=== PATIENT | female | born 1935 | race Two or more races ===

== ENCOUNTER 2020-08-14 13:48 | Inpatient (IN) | payer MEDICARE, OTHER ==
[2020-08-14] VITALS (15 sets, daily range): BP systolic 84–167; BP diastolic 34–62
[~2020-08-14] VITALS: Ht 167.6 cm; Wt 75.7 kg
[2020-08-14] MEDS: MIDAZOLAM DRIP 50 mg/50mL 50 ML IV SCH (13:54)
[2020-08-14] MEDS ORDERED: hydrALAZINE HCL 20 MG/ML VL IV ONE (14:00)
[2020-08-14] MEDS ORDERED: hydrALAZINE HCL 20 MG/ML VL ONE (14:00)
[2020-08-14 14:08] LABS: Basophils # (auto) 0.1 10 ^3/uL (0-0.2); Eosinophils # (auto) 0.3 10 ^3/uL (0-0.8); Lymphocytes # (auto) 5.9 10 ^3/uL (0.4-5.4); Mean Corpuscular Volume 77.3 fL (80.0-100.0); Nucleated Red Blood Cells % 0.4 %
[2020-08-14 14:13] LABS: Basophils % (auto) 0.4 % (0.0-2.0); Eosinophils % (auto) 2.3 % (0.0-7.0); Hematocrit 22.6 % (36.0-46.0); Lymphocytes % (auto) 43.2 % (10.0-50.0); Mean Corpuscular Hemoglobin 21.2 pg (28.0-32.0); Mean Corpuscular Hgb Conc. 27.4 g/dL (32.0-36.0); Monocytes % (auto) 7.6 % (0.0-12.0); Neutrophils # (auto) 6.4 10 ^3/uL (1.6-8.6); Neutrophils % (auto) 46.5 % (37.0-80.0); Platelet Count (auto) 266 10^3/uL (140-450); Red Blood Cells 2.92 10^6/uL (4.0-5.20); White Blood Cell 13.7 10^3/uL (4.4-10.8)
[2020-08-14] MEDS ORDERED: FUROSEMIDE 20 MG/2 ML VIAL IV ONE (14:15)
[2020-08-14] MEDS ORDERED: cefTRIAXone 1GM/50ML D5W 50 ML IV ONE (14:15)
[2020-08-14] MEDS ORDERED: SODIUM BICARBONATE 8.4 % INJ 50ML VIAL IV ONE (14:15)
[2020-08-14] MEDS ORDERED: CLINDAMYCIN 600MG IV 50 ML IV ONE (14:15)
[2020-08-14 14:21] LABS: Albumin 2.3 g/dL (3.4-5.0); Calcium 7.9 mg/dL (8.5-10.1); Potassium 3.5 mmol/L (3.5-5.1)
[2020-08-14 14:24] LABS: BUN/Creatinine Ratio 12.2; Bilirubin, Total 0.1 mg/dL (0.2-1.0); Total Protein 5.1 g/dL (6.4-8.2)
[2020-08-14 14:25] LABS: Hemoglobin 6.2 g/dL (12.2-16.2); Red Cell Distribution Width 22.5 % (11.8-14.3)
[2020-08-14] MEDS ORDERED: NOREPINEPHRINE 8 MG/250ML KIT 250 ML IV ONE (14:38)
[2020-08-14 14:50] LABS: INR 1.41 (0.9-1.15); Partial Thromboplastin Time 37.1 sec (23.0-31.2)
[2020-08-14] MEDS: NOREPINEPHRINE 8 MG/250ML KIT 250 ML IV SCH (14:50)
[2020-08-14] MEDS ORDERED: MORPHINE SULF INJ 2 MG/ML SYRINGE 1ML IV PRN (18:15)
[2020-08-14] MEDS ORDERED: NITROGLYCERIN 0.4 MG SL TAB SL PRN (18:15)
[2020-08-14 19:16] LABS: Urine Bacteria FEW /hpf (None Seen); Urine Blood 2+ /uL (Negative); Urine Hyaline Cast FEW /lpf (0 - 2); Urine Mucus FEW (None Seen); Urine Specific Gravity 1.011 (1.001-1.035); Urine WBC 77 /hpf (0 - 5)
[2020-08-14] MEDS ORDERED: MORPHINE SULFATE 4 MG/ML SYR/VIAL IV PRN (19:30)
[2020-08-14] MEDS ORDERED: SUCRALFATE 1 GM/10 ML ORAL SUSP PO ONE (19:30)
[2020-08-14] MEDS: SODIUM CHLORIDE 0.9% 1,000 ML IV SCH (19:30)
[2020-08-14] MEDS ORDERED: LORazepam 2MG/ML-1ML VIAL IV PRN (19:30)
[2020-08-14] MEDS ORDERED: VANCOMYCIN PER PHARMACY 1,000 MG IV SCH (19:30)
[2020-08-14] MEDS ORDERED: LORazepam 0.5 MG TAB PO PRN (19:30)
[2020-08-14] MEDS ORDERED: ONDANSETRON HCL 4 MG/2 ML VIAL IV PRN (19:30)
[2020-08-14] MEDS ORDERED: METOPROLOL TARTRATE 25 MG TAB PO ONE (19:30)
[2020-08-14] MEDS ORDERED: ALUM & MAG HYDROX-SIMETH LIQ(MAALOX) 30 ML PO ONE (19:30)
[2020-08-14] MEDS ORDERED: CALCIUM GLUC 1,000mg/50ml-NS 50 ML IV ONE (19:45)
[2020-08-14] MEDS ORDERED: PIPERACILLIN-TAZOB 3.375GM 100 ML IV ONE (20:00)
[2020-08-14] MEDS: IPRATROPIUM BROM 0.5 MG/2.5ML INH SOL NEB SCH (20:18)
[2020-08-14] MEDS ORDERED: VANCOMYCIN 1GM/250ML 250 ML IV ONE (21:00)
[2020-08-14] MEDS ORDERED: fentaNYL Drip 2500mCg/250mlNS 250 ML IV ONE (21:37)
[2020-08-14] MEDS: SUCRALFATE 1 GM/10 ML ORAL SUSP PO SCH (22:00)
[2020-08-14] MEDS: PANTOPRAZOLE 40 MG/10 ML VIAL INJ IV SCH (22:00)
[2020-08-14] MEDS: ATORVASTATIN 20 MG TAB PO SCH (22:00)
[2020-08-14 22:36] LABS: INR 1.09 (0.9-1.15)
[2020-08-14 22:59] LABS: Lactic Acid w/Reflex 5.7 mmol/L (0.4-2.0)
[2020-08-15] VITALS (92 sets, daily range): BP systolic 64–202; BP diastolic 27–74
[2020-08-15] MEDS ORDERED: PROPOFOL 200 ML IV ONE (00:40)
[2020-08-15] MEDS: PROPOFOL 100 ML IV SCH ×2 (00:45→14:00)
[2020-08-15] MEDS: fentaNYL Drip 2500mCg/250mlNS 250 ML IV SCH ×2 (00:45→09:11)
[2020-08-15] MEDS: IPRATROPIUM BROM 0.5 MG/2.5ML INH SOL NEB SCH ×6 (02:24→22:22)
[2020-08-15] MEDS: SUCRALFATE 1 GM/10 ML ORAL SUSP PO SCH ×4 (04:04→21:04)
[2020-08-15 04:23] LABS: Basophils # (auto) 0 10 ^3/uL (0-0.2); Basophils % (auto) 0.2 % (0.0-2.0); Eosinophils # (auto) 0 10 ^3/uL (0-0.8); Hematocrit 30.1 % (36.0-46.0); Lymphocytes # (auto) 0.4 10 ^3/uL (0.4-5.4); Mean Corpuscular Hemoglobin 23.2 pg (28.0-32.0); Mean Corpuscular Hgb Conc. 31.3 g/dL (32.0-36.0); Mean Corpuscular Volume 74.2 fL (80.0-100.0); Monocytes # (auto) 0.6 10 ^3/uL (0-1.3); Monocytes % (auto) 3.5 % (0.0-12.0); Neutrophils # (auto) 17.6 10 ^3/uL (1.6-8.6); Neutrophils % (auto) 94.3 % (37.0-80.0); Nucleated Red Blood Cells % 0.1 %; Platelet Count (auto) 232 10^3/uL (140-450); Red Blood Cells 4.05 10^6/uL (4.0-5.20); White Blood Cell 18.7 10^3/uL (4.4-10.8)
[2020-08-15 04:25] LABS: Hemoglobin 9.4 g/dL (12.2-16.2); Red Cell Distribution Width 22.3 % (11.8-14.3)
[2020-08-15 05:04] LABS: Albumin 2.7 g/dL (3.4-5.0); Calcium 7.2 mg/dL (8.5-10.1); Magnesium 2.3 mg/dL (1.6-2.6); Potassium 3.8 mmol/L (3.5-5.1)
[2020-08-15 05:07] LABS: BUN/Creatinine Ratio 17.9
[2020-08-15 05:09] LABS: Bilirubin, Total 0.5 mg/dL (0.2-1.0); Phosphorus 3.9 mg/dL (2.5-4.90); Total Protein 5.9 g/dL (6.4-8.2)
[2020-08-15] MEDS ORDERED: ENOXAPARIN SOD 100 MG/1 ML SYRINGE SC ONE (05:15)
[2020-08-15 05:26] LABS: INR 1.12 (0.9-1.15); Partial Thromboplastin Time 28.6 sec (23.0-31.2)
[2020-08-15 05:28] LABS: % Iron Saturation 7.1 % (15-50)
[2020-08-15] MEDS: PIPERACILLIN-TAZOB 2.25GM 50 ML IV SCH ×4 (05:45→17:45)
[2020-08-15] MEDS: MIDAZOLAM DRIP 50 mg/50mL 50 ML IV SCH ×2 (09:00→14:00)
[2020-08-15] MEDS: PANTOPRAZOLE 40 MG/10 ML VIAL INJ IV SCH ×2 (09:17→21:04)
[2020-08-15] MEDS: DOCUSATE SOD 100 MG CAP PO SCH (09:17)
[2020-08-15] MEDS ORDERED: LISINOPRIL 5 MG TAB PO SCH (10:00)
[2020-08-15] MEDS: SODIUM CHLORIDE 0.9% 1,000 ML IV SCH ×2 (11:00→21:05)
[2020-08-15] MEDS ORDERED: LINEZOLID 600MG/300ML 300 ML IV ONE (11:45)
[2020-08-15] MEDS: NOREPINEPHRINE 8 MG/250ML KIT 250 ML IV SCH (15:00)
[2020-08-15] MEDS: ATORVASTATIN 20 MG TAB PO SCH (21:04)
[2020-08-15] MEDS: LINEZOLID 600MG/300ML 300 ML IV SCH (21:04)
[2020-08-16] VITALS (83 sets, daily range): BP systolic 87–154; BP diastolic 25–65
[2020-08-16] MEDS: PIPERACILLIN-TAZOB 2.25GM 50 ML IV SCH ×4 (00:26→18:20)
[2020-08-16 00:31] LABS: Eosinophils # (auto) 0.2 10 ^3/uL (0-0.8); Hemoglobin 8.5 g/dL (12.2-16.2); Lymphocytes # (auto) 0.6 10 ^3/uL (0.4-5.4); Monocytes # (auto) 0.4 10 ^3/uL (0-1.3); Neutrophils # (auto) 10.8 10 ^3/uL (1.6-8.6)
[2020-08-16 00:32] LABS: Basophils # (auto) 0.1 10 ^3/uL (0-0.2); Eosinophils % (auto) 1.6 % (0.0-7.0); Hematocrit 26.1 % (36.0-46.0); Mean Corpuscular Hemoglobin 23.5 pg (28.0-32.0); Mean Corpuscular Hgb Conc. 32.4 g/dL (32.0-36.0); Mean Corpuscular Volume 72.6 fL (80.0-100.0); Monocytes % (auto) 3.4 % (0.0-12.0); Platelet Count (auto) 190 10^3/uL (140-450); Red Blood Cells 3.59 10^6/uL (4.0-5.20); White Blood Cell 12.1 10^3/uL (4.4-10.8)
[2020-08-16 00:35] LABS: Red Cell Distribution Width 22.4 % (11.8-14.3)
[2020-08-16 00:44] LABS: INR 1.14 (0.9-1.15); Partial Thromboplastin Time 34.2 sec (23.0-31.2)
[2020-08-16] MEDS: fentaNYL Drip 2500mCg/250mlNS 250 ML IV SCH ×2 (00:45→09:00)
[2020-08-16] MEDS: PROPOFOL 100 ML IV SCH ×2 (00:45→11:00)
[2020-08-16 00:52] LABS: Albumin 2.4 g/dL (3.4-5.0); BUN/Creatinine Ratio 18.8; Calcium 6.6 mg/dL (8.5-10.1); Potassium 3.2 mmol/L (3.5-5.1)
[2020-08-16 00:55] LABS: Bilirubin, Total 0.4 mg/dL (0.2-1.0); Total Protein 5.1 g/dL (6.4-8.2)
[2020-08-16] MEDS: IPRATROPIUM BROM 0.5 MG/2.5ML INH SOL NEB SCH ×6 (02:29→22:17)
[2020-08-16 04:31] LABS: Hematocrit 27.8 % (36.0-46.0); Hemoglobin 8.8 g/dL (12.2-16.2); Mean Corpuscular Hemoglobin 22.9 pg (28.0-32.0); Mean Corpuscular Hgb Conc. 31.6 g/dL (32.0-36.0); Mean Corpuscular Volume 72.7 fL (80.0-100.0); Platelet Count (auto) 177 10^3/uL (140-450); Red Blood Cells 3.82 10^6/uL (4.0-5.20); White Blood Cell 16.6 10^3/uL (4.4-10.8)
[2020-08-16 04:42] LABS: Red Cell Distribution Width 22.4 % (11.8-14.3)
[2020-08-16 04:43] LABS: Basophils % (manual) 0 (0.0-2.0); Blast Cells 0; Metamyelocytes % 0; Myelocytes % 0; Promyelocytes % 0; Reactive Lymphocytes 0
[2020-08-16 05:38] LABS: Anion Gap 14 (5-15); BUN/Creatinine Ratio 18.2; Blood Urea Nitrogen 26 mg/dL (7-18); Calcium 7.2 mg/dL (8.5-10.1); Carbon Dioxide 19 mmol/L (21-32); Chloride 107 mmol/L (98-107); GFR African American 45 mL/min; GFR Non-African American 37 mL/min; Glucose 101 mg/dL (74-106); Potassium 3.5 mmol/L (3.5-5.1); Sodium 140 mmol/L (136-145)
[2020-08-16 05:41] LABS: Band Neutrophils % (manual) 21; Eosinophils % (manual) 2 (0-7); Lymphocytes % (manual) 2 (10.0-50.0); Monocytes % (manual) 3 (0-12)
[2020-08-16] MEDS: SUCRALFATE 1 GM/10 ML ORAL SUSP PO SCH ×4 (06:42→22:00)
[2020-08-16] MEDS: DOCUSATE SOD 100 MG CAP PO SCH (10:00)
[2020-08-16] MEDS: PANTOPRAZOLE 40 MG/10 ML VIAL INJ IV SCH ×2 (10:01→22:58)
[2020-08-16] MEDS: LINEZOLID 600MG/300ML 300 ML IV SCH ×2 (10:02→22:59)
[2020-08-16] MEDS: SODIUM CHLORIDE 0.9% 1,000 ML IV SCH (11:27)
[2020-08-16] MEDS: MIDAZOLAM DRIP 50 mg/50mL 50 ML IV SCH (14:00)
[2020-08-16] MEDS: NOREPINEPHRINE 8 MG/250ML KIT 250 ML IV SCH (15:00)
[2020-08-16] MEDS: ATORVASTATIN 20 MG TAB PO SCH (22:00)
[2020-08-17] VITALS (58 sets, daily range): BP systolic 96–145; BP diastolic 29–55
[2020-08-17] MEDS: PIPERACILLIN-TAZOB 2.25GM 50 ML IV SCH ×4 (00:13→18:46)
[2020-08-17] MEDS: PROPOFOL 100 ML IV SCH (00:45)
[2020-08-17] MEDS: fentaNYL Drip 2500mCg/250mlNS 250 ML IV SCH (00:45)
[2020-08-17] MEDS: SODIUM CHLORIDE 0.9% 1,000 ML IV SCH (00:50)
[2020-08-17] MEDS: IPRATROPIUM BROM 0.5 MG/2.5ML INH SOL NEB SCH ×6 (01:58→22:21)
[2020-08-17] MEDS: SUCRALFATE 1 GM/10 ML ORAL SUSP PO SCH ×4 (03:56→23:09)
[2020-08-17 04:32] LABS: Basophils # (auto) 0 10 ^3/uL (0-0.2); Eosinophils # (auto) 0.3 10 ^3/uL (0-0.8); Hematocrit 24.4 % (36.0-46.0); Hemoglobin 7.9 g/dL (12.2-16.2); Lymphocytes # (auto) 0.8 10 ^3/uL (0.4-5.4); Mean Corpuscular Volume 73.6 fL (80.0-100.0); Monocytes # (auto) 0.9 10 ^3/uL (0-1.3); Red Blood Cells 3.31 10^6/uL (4.0-5.20)
[2020-08-17 04:35] LABS: Basophils % (auto) 0.3 % (0.0-2.0); Eosinophils % (auto) 2.3 % (0.0-7.0); Lymphocytes % (auto) 7.1 % (10.0-50.0); Mean Corpuscular Hgb Conc. 32.6 g/dL (32.0-36.0); Monocytes % (auto) 8.3 % (0.0-12.0); Neutrophils # (auto) 9.1 10 ^3/uL (1.6-8.6); Platelet Count (auto) 152 10^3/uL (140-450); Red Cell Distribution Width 22.6 % (11.8-14.3); White Blood Cell 11.1 10^3/uL (4.4-10.8)
[2020-08-17 04:52] LABS: Calcium 7.1 mg/dL (8.5-10.1); Potassium 3.3 mmol/L (3.5-5.1)
[2020-08-17 04:55] LABS: BUN/Creatinine Ratio 16.3
[2020-08-17] MEDS: DOCUSATE SOD 100 MG CAP PO SCH (10:00)
[2020-08-17] MEDS: LINEZOLID 600MG/300ML 300 ML IV SCH ×2 (11:39→23:09)
[2020-08-17] MEDS: PANTOPRAZOLE 40 MG/10 ML VIAL INJ IV SCH (11:40)
[2020-08-17] MEDS: POTASSIUM CHL 20MEQ/100ML 100 ML IV SCH (14:00)
[2020-08-17] MEDS: MIDAZOLAM DRIP 50 mg/50mL 50 ML IV SCH (14:00)
[2020-08-17] MEDS: NOREPINEPHRINE 8 MG/250ML KIT 250 ML IV SCH (15:00)
[2020-08-17] MEDS ORDERED: FUROSEMIDE 20 MG/2 ML VIAL IV SCH (18:00)
[2020-08-17] MEDS: ESOMEPRAZOLE 40 MG/5ml VIAL INJ IV SCH (22:00)
[2020-08-17] MEDS ORDERED: CARVEDILOL 3.125 MG TAB PO SCH (22:00)
[2020-08-17] MEDS: ATORVASTATIN 20 MG TAB PO SCH (23:10)
[2020-08-18] VITALS (36 sets, daily range): BP systolic 122–174; BP diastolic 36–66
[2020-08-18] MEDS: fentaNYL Drip 2500mCg/250mlNS 250 ML IV SCH (00:45)
[2020-08-18] MEDS: PROPOFOL 100 ML IV SCH (00:45)
[2020-08-18] MEDS: PIPERACILLIN-TAZOB 2.25GM 50 ML IV SCH ×5 (01:10→23:46)
[2020-08-18] MEDS: IPRATROPIUM BROM 0.5 MG/2.5ML INH SOL NEB SCH ×6 (02:22→22:33)
[2020-08-18 05:40] LABS: Basophils % (auto) 0.5 % (0.0-2.0); Hemoglobin 7.8 g/dL (12.2-16.2); Lymphocytes # (auto) 0.7 10 ^3/uL (0.4-5.4); Monocytes # (auto) 0.8 10 ^3/uL (0-1.3); Monocytes % (auto) 8.7 % (0.0-12.0); Neutrophils % (auto) 81.8 % (37.0-80.0)
[2020-08-18 05:43] LABS: Basophils # (auto) 0 10 ^3/uL (0-0.2); Eosinophils # (auto) 0.2 10 ^3/uL (0-0.8); Eosinophils % (auto) 1.7 % (0.0-7.0); Hematocrit 23.4 % (36.0-46.0); Lymphocytes % (auto) 7.3 % (10.0-50.0); Mean Corpuscular Hemoglobin 24.4 pg (28.0-32.0); Mean Corpuscular Hgb Conc. 33.3 g/dL (32.0-36.0); Mean Corpuscular Volume 73.4 fL (80.0-100.0); Neutrophils # (auto) 7.6 10 ^3/uL (1.6-8.6); Nucleated Red Blood Cells % 0.2 %; Platelet Count (auto) 136 10^3/uL (140-450); Red Blood Cells 3.18 10^6/uL (4.0-5.20); White Blood Cell 9.3 10^3/uL (4.4-10.8)
[2020-08-18 05:58] LABS: Red Cell Distribution Width 22.3 % (11.8-14.3)
[2020-08-18 06:03] LABS: Potassium 4.2 mmol/L (3.5-5.1)
[2020-08-18 06:07] LABS: BUN/Creatinine Ratio 17.2; Calcium 7.7 mg/dL (8.5-10.1)
[2020-08-18] MEDS: SUCRALFATE 1 GM/10 ML ORAL SUSP PO SCH ×4 (07:00→22:43)
[2020-08-18] MEDS: DOCUSATE SOD 100 MG CAP PO SCH (09:30)
[2020-08-18] MEDS: MIDAZOLAM DRIP 50 mg/50mL 50 ML IV SCH (09:31)
[2020-08-18] MEDS: NOREPINEPHRINE 8 MG/250ML KIT 250 ML IV SCH (09:31)
[2020-08-18] MEDS: ESOMEPRAZOLE 40 MG/5ml VIAL INJ IV SCH ×2 (10:00→22:00)
[2020-08-18] MEDS: FUROSEMIDE 20 MG/2 ML VIAL IV SCH (10:36)
[2020-08-18] MEDS: LINEZOLID 600MG/300ML 300 ML IV SCH ×2 (10:36→22:24)
[2020-08-18] MEDS: CARVEDILOL 12.5 MG TAB PO SCH ×2 (10:37→22:00)
[2020-08-18] MEDS: LISINOPRIL 5 MG TAB PO SCH (10:38)
[2020-08-18] MEDS ORDERED: ADENOSINE 6 MG/2 ML INJ IV ONE (15:54)
[2020-08-18] MEDS: ATORVASTATIN 20 MG TAB PO SCH (22:43)
[2020-08-19] VITALS (35 sets, daily range): BP systolic 118–185; BP diastolic 40–95
[2020-08-19] MEDS: IPRATROPIUM BROM 0.5 MG/2.5ML INH SOL NEB SCH ×6 (02:40→22:38)
[2020-08-19 04:22] LABS: Basophils # (auto) 0 10 ^3/uL (0-0.2); Basophils % (auto) 0.3 % (0.0-2.0); Eosinophils # (auto) 0.1 10 ^3/uL (0-0.8); Eosinophils % (auto) 1.2 % (0.0-7.0); Hematocrit 23.4 % (36.0-46.0); Hemoglobin 7.7 g/dL (12.2-16.2); Lymphocytes # (auto) 0.7 10 ^3/uL (0.4-5.4); Lymphocytes % (auto) 7.6 % (10.0-50.0); Mean Corpuscular Hemoglobin 23.8 pg (28.0-32.0); Mean Corpuscular Hgb Conc. 32.8 g/dL (32.0-36.0); Mean Corpuscular Volume 72.7 fL (80.0-100.0); Monocytes # (auto) 0.8 10 ^3/uL (0-1.3); Monocytes % (auto) 8.4 % (0.0-12.0); Neutrophils # (auto) 7.9 10 ^3/uL (1.6-8.6); Neutrophils % (auto) 82.5 % (37.0-80.0); Nucleated Red Blood Cells % 0.1 %; Platelet Count (auto) 158 10^3/uL (140-450); Red Blood Cells 3.23 10^6/uL (4.0-5.20); White Blood Cell 9.6 10^3/uL (4.4-10.8)
[2020-08-19 04:23] LABS: Red Cell Distribution Width 22.1 % (11.8-14.3)
[2020-08-19 04:43] LABS: Potassium 3.2 mmol/L (3.5-5.1)
[2020-08-19 04:49] LABS: BUN/Creatinine Ratio 19.3; Calcium 7.7 mg/dL (8.5-10.1)
[2020-08-19] MEDS: PIPERACILLIN-TAZOB 2.25GM 50 ML IV SCH ×3 (06:10→18:26)
[2020-08-19] MEDS: SUCRALFATE 1 GM/10 ML ORAL SUSP PO SCH ×4 (06:28→22:00)
[2020-08-19] MEDS: DOCUSATE SOD 100 MG CAP PO SCH (10:00)
[2020-08-19] MEDS: CARVEDILOL 12.5 MG TAB PO SCH ×2 (10:00→22:00)
[2020-08-19] MEDS: fentaNYL Drip 2500mCg/250mlNS 250 ML IV SCH (10:12)
[2020-08-19] MEDS: LINEZOLID 600MG/300ML 300 ML IV SCH ×2 (10:13→22:00)
[2020-08-19] MEDS: PROPOFOL 100 ML IV SCH (10:13)
[2020-08-19] MEDS: ESOMEPRAZOLE 40 MG/5ml VIAL INJ IV SCH ×2 (10:14→22:00)
[2020-08-19] MEDS: FUROSEMIDE 20 MG/2 ML VIAL IV SCH (10:15)
[2020-08-19] MEDS: LISINOPRIL 5 MG TAB PO SCH (10:16)
[2020-08-19] MEDS: POTASSIUM CHL 20MEQ/100ML 100 ML IV SCH ×4 (10:30→12:32)
[2020-08-19] MEDS: MIDAZOLAM DRIP 50 mg/50mL 50 ML IV SCH (14:00)
[2020-08-19] MEDS: ACETAMINOPHEN 500 MG TAB PO PRN (14:06)
[2020-08-19] MEDS: NOREPINEPHRINE 8 MG/250ML KIT 250 ML IV SCH (15:00)
[2020-08-19] MEDS: ATORVASTATIN 20 MG TAB PO SCH (22:00)
[2020-08-20] VITALS (81 sets, daily range): BP systolic 87–206; BP diastolic 25–108
[2020-08-20] MEDS: PIPERACILLIN-TAZOB 2.25GM 50 ML IV SCH ×4 (00:13→17:07)
[2020-08-20] MEDS: fentaNYL Drip 2500mCg/250mlNS 250 ML IV SCH (00:45)
[2020-08-20] MEDS: PROPOFOL 100 ML IV SCH (00:45)
[2020-08-20] MEDS: MORPHINE SULFATE 4 MG/ML SYR/VIAL IV PRN (02:06)
[2020-08-20] MEDS: ACETAMINOPHEN 500 MG TAB PO PRN ×3 (02:08→21:40)
[2020-08-20] MEDS: IPRATROPIUM BROM 0.5 MG/2.5ML INH SOL NEB SCH ×6 (02:11→22:13)
[2020-08-20 05:22] LABS: Nucleated Red Blood Cells % 0.1 %; White Blood Cell 8.5 10^3/uL (4.4-10.8)
[2020-08-20 05:23] LABS: Basophils # (auto) 0 10 ^3/uL (0-0.2); Basophils % (auto) 0.3 % (0.0-2.0); Eosinophils # (auto) 0.2 10 ^3/uL (0-0.8); Eosinophils % (auto) 2.1 % (0.0-7.0); Hematocrit 23.5 % (36.0-46.0); Hemoglobin 7.7 g/dL (12.2-16.2); Lymphocytes # (auto) 0.8 10 ^3/uL (0.4-5.4); Lymphocytes % (auto) 9.3 % (10.0-50.0); Mean Corpuscular Hemoglobin 23.7 pg (28.0-32.0); Mean Corpuscular Hgb Conc. 32.5 g/dL (32.0-36.0); Mean Corpuscular Volume 72.8 fL (80.0-100.0); Monocytes % (auto) 11.3 % (0.0-12.0); Neutrophils # (auto) 6.6 10 ^3/uL (1.6-8.6); Platelet Count (auto) 168 10^3/uL (140-450); Red Blood Cells 3.23 10^6/uL (4.0-5.20)
[2020-08-20 05:29] LABS: Red Cell Distribution Width 22.3 % (11.8-14.3)
[2020-08-20 05:41] LABS: BUN/Creatinine Ratio 22.1; Calcium 7.9 mg/dL (8.5-10.1); Potassium 3.2 mmol/L (3.5-5.1)
[2020-08-20] MEDS: SUCRALFATE 1 GM/10 ML ORAL SUSP PO SCH ×4 (07:02→22:00)
[2020-08-20] MEDS: hydrALAZINE HCL 20 MG/ML VL IV PRN ×2 (09:11→17:35)
[2020-08-20] MEDS: POTASSIUM CHL 20MEQ/100ML 100 ML IV SCH ×3 (09:11→11:24)
[2020-08-20] MEDS: LINEZOLID 600MG/300ML 300 ML IV SCH ×2 (09:40→21:42)
[2020-08-20] MEDS: FUROSEMIDE 20 MG/2 ML VIAL IV SCH (09:40)
[2020-08-20] MEDS: LISINOPRIL 20 MG TAB PO SCH (09:41)
[2020-08-20] MEDS: DOCUSATE SOD 100 MG CAP PO SCH (09:42)
[2020-08-20] MEDS: ESOMEPRAZOLE 40 MG/5ml VIAL INJ IV SCH ×2 (09:42→21:35)
[2020-08-20] MEDS: CARVEDILOL 12.5 MG TAB PO SCH ×2 (09:42→21:36)
[2020-08-20] MEDS ORDERED: LORazepam 2MG/ML-1ML VIAL ONE (10:26)
[2020-08-20] MEDS: LORazepam 2MG/ML-1ML VIAL IV PRN ×2 (10:38→13:33)
[2020-08-20] MEDS ORDERED: MIDAZOLAM HCL 1MG/1ML-2 ML VIAL ONE (11:22)
[2020-08-20] MEDS: MIDAZOLAM HCL 1MG/1ML-2 ML VIAL IV PRN ×2 (11:25→14:53)
[2020-08-20] MEDS: NOREPINEPHRINE 8 MG/250ML KIT 250 ML IV SCH (15:00)
[2020-08-20] MEDS: MIDAZOLAM DRIP 50 mg/50mL 50 ML IV SCH (15:14)
[2020-08-20] MEDS: ATORVASTATIN 20 MG TAB PO SCH (21:43)
[2020-08-21] VITALS (99 sets, daily range): BP systolic 90–187; BP diastolic 28–69
[2020-08-21] MEDS: PIPERACILLIN-TAZOB 2.25GM 50 ML IV SCH ×5 (00:38→23:47)
[2020-08-21] MEDS: MIDAZOLAM DRIP 50 mg/50mL 50 ML IV SCH (00:39)
[2020-08-21] MEDS: fentaNYL Drip 2500mCg/250mlNS 250 ML IV SCH (00:45)
[2020-08-21] MEDS: PROPOFOL 100 ML IV SCH (00:45)
[2020-08-21] MEDS: IPRATROPIUM BROM 0.5 MG/2.5ML INH SOL NEB SCH ×6 (02:22→22:31)
[2020-08-21] MEDS: ACETAMINOPHEN 500 MG TAB PO PRN ×3 (02:57→23:11)
[2020-08-21 04:21] LABS: Basophils # (auto) 0 10 ^3/uL (0-0.2); Lymphocytes # (auto) 0.7 10 ^3/uL (0.4-5.4); Monocytes # (auto) 1.3 10 ^3/uL (0-1.3); Monocytes % (auto) 13.3 % (0.0-12.0)
[2020-08-21 04:24] LABS: Basophils % (auto) 0.3 % (0.0-2.0); Eosinophils # (auto) 0.1 10 ^3/uL (0-0.8); Eosinophils % (auto) 1.4 % (0.0-7.0); Hematocrit 23.7 % (36.0-46.0); Lymphocytes % (auto) 6.8 % (10.0-50.0); Mean Corpuscular Hemoglobin 24.2 pg (28.0-32.0); Mean Corpuscular Hgb Conc. 33.6 g/dL (32.0-36.0); Mean Corpuscular Volume 72.2 fL (80.0-100.0); Neutrophils # (auto) 7.6 10 ^3/uL (1.6-8.6); Neutrophils % (auto) 78.2 % (37.0-80.0); Platelet Count (auto) 181 10^3/uL (140-450); Red Blood Cells 3.28 10^6/uL (4.0-5.20); White Blood Cell 9.7 10^3/uL (4.4-10.8)
[2020-08-21 04:40] LABS: Calcium 7.9 mg/dL (8.5-10.1); Potassium 3.2 mmol/L (3.5-5.1)
[2020-08-21 04:42] LABS: BUN/Creatinine Ratio 23.1
[2020-08-21 05:07] LABS: Red Cell Distribution Width 22.2 % (11.8-14.3)
[2020-08-21] MEDS: SUCRALFATE 1 GM/10 ML ORAL SUSP PO SCH ×4 (06:30→21:33)
[2020-08-21] MEDS: CARVEDILOL 12.5 MG TAB PO SCH ×2 (10:00→21:25)
[2020-08-21] MEDS: DOCUSATE SOD 100 MG CAP PO SCH (10:00)
[2020-08-21] MEDS: LISINOPRIL 20 MG TAB PO SCH (10:00)
[2020-08-21] MEDS: FUROSEMIDE 20 MG/2 ML VIAL IV SCH (10:23)
[2020-08-21] MEDS: ASPirin 81 mg TAB NG SCH (10:24)
[2020-08-21] MEDS: ESOMEPRAZOLE 40 MG/5ml VIAL INJ IV SCH ×2 (10:25→21:25)
[2020-08-21] MEDS: POTASSIUM CHL 20MEQ/100ML 100 ML IV SCH ×3 (10:27→13:48)
[2020-08-21] MEDS: NOREPINEPHRINE 8 MG/250ML KIT 250 ML IV SCH (15:00)
[2020-08-21] MEDS ORDERED: POTASSIUM CHL 20MEQ/100ML 100 ML IV ONE (20:15)
[2020-08-21] MEDS: ATORVASTATIN 20 MG TAB PO SCH (21:24)
[2020-08-21] MEDS: hydrALAZINE HCL 20 MG/ML VL IV PRN (22:20)
[2020-08-22] VITALS (96 sets, daily range): BP systolic 106–193; BP diastolic 32–101
[2020-08-22] MEDS: PROPOFOL 100 ML IV SCH (00:45)
[2020-08-22] MEDS: fentaNYL Drip 2500mCg/250mlNS 250 ML IV SCH (00:45)
[2020-08-22] MEDS: MORPHINE SULFATE 4 MG/ML SYR/VIAL IV PRN (02:10)
[2020-08-22] MEDS: IPRATROPIUM BROM 0.5 MG/2.5ML INH SOL NEB SCH ×3 (02:17→22:25)
[2020-08-22] MEDS: LORazepam 2MG/ML-1ML VIAL IV PRN (02:58)
[2020-08-22 04:48] LABS: Basophils # (auto) 0 10 ^3/uL (0-0.2); Hematocrit 22.4 % (36.0-46.0); Hemoglobin 7.4 g/dL (12.2-16.2)
[2020-08-22 04:49] LABS: Basophils % (auto) 0.4 % (0.0-2.0); Eosinophils # (auto) 0.2 10 ^3/uL (0-0.8); Eosinophils % (auto) 1.8 % (0.0-7.0); Lymphocytes # (auto) 0.6 10 ^3/uL (0.4-5.4); Lymphocytes % (auto) 6.3 % (10.0-50.0); Mean Corpuscular Volume 72.8 fL (80.0-100.0); Monocytes % (auto) 9.7 % (0.0-12.0); Neutrophils % (auto) 81.8 % (37.0-80.0); Platelet Count (auto) 176 10^3/uL (140-450); Red Blood Cells 3.07 10^6/uL (4.0-5.20); White Blood Cell 9.8 10^3/uL (4.4-10.8)
[2020-08-22 04:50] LABS: Calcium 8.1 mg/dL (8.5-10.1); Potassium 3.3 mmol/L (3.5-5.1)
[2020-08-22 04:52] LABS: BUN/Creatinine Ratio 25.5; Red Cell Distribution Width 22.1 % (11.8-14.3)
[2020-08-22] MEDS: PIPERACILLIN-TAZOB 2.25GM 50 ML IV SCH ×3 (05:22→18:00)
[2020-08-22] MEDS: hydrALAZINE HCL 20 MG/ML VL IV PRN (05:50)
[2020-08-22] MEDS: SUCRALFATE 1 GM/10 ML ORAL SUSP PO SCH ×4 (06:30→22:00)
[2020-08-22] MEDS: MIDAZOLAM DRIP 50 mg/50mL 50 ML IV SCH (06:32)
[2020-08-22] MEDS: DOCUSATE SOD 100 MG CAP PO SCH (10:00)
[2020-08-22] MEDS: FUROSEMIDE 20 MG/2 ML VIAL IV SCH (10:51)
[2020-08-22] MEDS: ASPirin 81 mg TAB NG SCH (10:52)
[2020-08-22] MEDS: ESOMEPRAZOLE 40 MG/5ml VIAL INJ IV SCH ×2 (10:52→22:08)
[2020-08-22] MEDS: LISINOPRIL 20 MG TAB PO SCH (10:53)
[2020-08-22] MEDS: CARVEDILOL 12.5 MG TAB PO SCH ×2 (10:53→22:00)
[2020-08-22] MEDS ORDERED: POTASSIUM EFFERVESENT TAB 25 MEQ GT ONE (13:30)
[2020-08-22] MEDS ORDERED: Jevity 1.2 Cal/Fiber 1 Liter GT SCH (13:30)
[2020-08-22] MEDS: NOREPINEPHRINE 8 MG/250ML KIT 250 ML IV SCH (15:00)
[2020-08-22] MEDS: ACETAMINOPHEN 500 MG TAB PO PRN (18:53)
[2020-08-22] MEDS: ATORVASTATIN 20 MG TAB PO SCH (22:09)
[2020-08-23] VITALS (101 sets, daily range): BP systolic 97–200; BP diastolic 32–87
[2020-08-23] MEDS: PIPERACILLIN-TAZOB 2.25GM 50 ML IV SCH ×3 (00:02→13:12)
[2020-08-23] MEDS: hydrALAZINE HCL 20 MG/ML VL IV PRN ×3 (00:42→13:12)
[2020-08-23] MEDS: IPRATROPIUM BROM 0.5 MG/2.5ML INH SOL NEB SCH ×4 (02:30→13:57)
[2020-08-23] MEDS: MORPHINE SULFATE 4 MG/ML SYR/VIAL IV PRN ×2 (02:50→14:08)
[2020-08-23] MEDS: ACETAMINOPHEN 500 MG TAB PO PRN (02:51)
[2020-08-23 04:10] LABS: Basophils # (auto) 0 10 ^3/uL (0-0.2); Eosinophils # (auto) 0.1 10 ^3/uL (0-0.8); Lymphocytes # (auto) 0.6 10 ^3/uL (0.4-5.4); Monocytes # (auto) 1.1 10 ^3/uL (0-1.3); Neutrophils % (auto) 83.6 % (37.0-80.0); Nucleated Red Blood Cells % 0.1 %
[2020-08-23 04:12] LABS: Basophils % (auto) 0.4 % (0.0-2.0); Eosinophils % (auto) 1.1 % (0.0-7.0); Hematocrit 24.3 % (36.0-46.0); Lymphocytes % (auto) 5.1 % (10.0-50.0); Mean Corpuscular Hemoglobin 24.1 pg (28.0-32.0); Mean Corpuscular Hgb Conc. 32.8 g/dL (32.0-36.0); Mean Corpuscular Volume 73.4 fL (80.0-100.0); Monocytes % (auto) 9.8 % (0.0-12.0); Neutrophils # (auto) 9.2 10 ^3/uL (1.6-8.6); Platelet Count (auto) 211 10^3/uL (140-450); Red Blood Cells 3.31 10^6/uL (4.0-5.20)
[2020-08-23 04:13] LABS: Red Cell Distribution Width 22.7 % (11.8-14.3)
[2020-08-23 04:26] LABS: Albumin 2.3 g/dL (3.4-5.0); Calcium 8.2 mg/dL (8.5-10.1); Potassium 3.1 mmol/L (3.5-5.1)
[2020-08-23 04:29] LABS: BUN/Creatinine Ratio 23.3; Bilirubin, Total 0.4 mg/dL (0.2-1.0); Total Protein 6.2 g/dL (6.4-8.2)
[2020-08-23] MEDS: SUCRALFATE 1 GM/10 ML ORAL SUSP PO SCH ×2 (06:37→13:12)
[2020-08-23] MEDS: PROPOFOL 100 ML IV SCH (07:45)
[2020-08-23] MEDS: fentaNYL Drip 2500mCg/250mlNS 250 ML IV SCH (07:45)
[2020-08-23] MEDS: DOCUSATE SOD 100 MG CAP PO SCH (09:51)
[2020-08-23] MEDS: ASPirin 81 mg TAB NG SCH (09:51)
[2020-08-23] MEDS: ESOMEPRAZOLE 40 MG/5ml VIAL INJ IV SCH (09:51)
[2020-08-23] MEDS: CARVEDILOL 12.5 MG TAB PO SCH (09:52)
[2020-08-23] MEDS ORDERED: LISINOPRIL 20 MG TAB PO SCH (10:00)
[2020-08-23] MEDS ORDERED: Jevity 1.2 Cal/Fiber 1 Liter GT SCH (10:15)
[2020-08-23] MEDS ORDERED: POTASSIUM EFFERVESENT TAB 25 MEQ PO ONE (10:15)
[2020-08-23] MEDS: NOREPINEPHRINE 8 MG/250ML KIT 250 ML IV SCH (15:00)
[2020-08-23] MEDS: MIDAZOLAM DRIP 50 mg/50mL 50 ML IV SCH (15:06)
[2020-08-23] MEDS ORDERED: MORPHINE SULF INJ 2 MG/ML SYRINGE 1ML IV PRN ×2 (17:00→17:15)
[2020-08-23] MEDS ORDERED: LORazepam 2MG/ML-1ML VIAL IV PRN (17:00)
[2020-08-23] MEDS: SODIUM CHLORIDE 0.9% 1,000 ML IV SCH (17:25)
[2020-08-23] MEDS: MORPHINE SULF INJ 2 MG/ML SYRINGE 1ML IV PRN ×3 (17:26→20:25)
[2020-08-23] MEDS: LORazepam 2MG/ML-1ML VIAL IV PRN ×3 (18:02→22:36)
[2020-08-24] VITALS (30 sets, daily range): BP systolic 62–171; BP diastolic 36–92
[2020-08-24] MEDS: MORPHINE SULF INJ 2 MG/ML SYRINGE 1ML IV PRN ×14 (00:12→21:55)
[2020-08-24] MEDS: LORazepam 2MG/ML-1ML VIAL IV PRN ×13 (02:34→21:55)
[2020-08-24] MEDS: SODIUM CHLORIDE 0.9% 1,000 ML IV SCH (17:00)
== END 2020-08-24 23:00 | DRG 870 ==
LOC: ER 13:48 → EDBD 13:48 → ICU WEST 18:12 → CENTRAL 08-24 22:07
PROVIDERS: ADMIT Hospitalist; ATTEND Internal Medicine Pulmonary Disease
PROC: 5A12012 Performance of Cardiac Output, Single, Manual (ICD-10-PCS; principal; 2020-08-14)
PROC: 02HV33Z Insertion of Infusion Device into Superior Vena Cava, Percutaneous Approach (ICD-10-PCS; 2020-08-14)
PROC: B548ZZA Ultrasonography of Superior Vena Cava, Guidance (ICD-10-PCS; 2020-08-14)
PROC: 5A1955Z Respiratory Ventilation, Greater than 96 Consecutive Hours (ICD-10-PCS; 2020-08-14)
PROC: 0BH17EZ Insertion of Endotracheal Airway into Trachea, Via Natural or Artificial Opening (ICD-10-PCS; 2020-08-14)
PROC: 30230N1 Transfusion of Nonautologous Red Blood Cells into Peripheral Vein, Open Approach (ICD-10-PCS; 2020-08-15)
DX: A41.9 Sepsis, unspecified organism (principal); J69.0 Pneumonitis due to inhalation of food and vomit; J96.01 Acute respiratory failure with hypoxia; R65.21 Severe sepsis with septic shock; I26.99 Other pulmonary embolism without acute cor pulmonale; K72.00 Acute and subacute hepatic failure without coma; E43 Unspecified severe protein-calorie malnutrition; N17.0 Acute kidney failure with tubular necrosis; I21.A1 Myocardial infarction type 2; G93.41 Metabolic encephalopathy; I50.43 Acute on chronic combined systolic (congestive) and diastolic (congestive) heart failure; K62.5 Hemorrhage of anus and rectum; D62 Acute posthemorrhagic anemia; N39.0 Urinary tract infection, site not specified; P91.60 Hypoxic ischemic encephalopathy [HIE], unspecified; F11.20 Opioid dependence, uncomplicated; G93.1 Anoxic brain damage, not elsewhere classified; I13.0 Hypertensive heart and chronic kidney disease with heart failure and stage 1 through stage 4 chronic kidney disease, or unspecified chronic kidney disease; I42.9 Cardiomyopathy, unspecified; J44.0 Chronic obstructive pulmonary disease with (acute) lower respiratory infection; Z20.822 Contact with and (suspected) exposure to COVID-19; Z51.5 Encounter for palliative care; Z96.649 Presence of unspecified artificial hip joint; G62.9 Polyneuropathy, unspecified; R57.0 Cardiogenic shock; R57.1 Hypovolemic shock; I44.7 Left bundle-branch block, unspecified; I48.91 Unspecified atrial fibrillation; I46.9 Cardiac arrest, cause unspecified; M19.90 Unspecified osteoarthritis, unspecified site; K21.9 Gastro-esophageal reflux disease without esophagitis; K29.70 Gastritis, unspecified, without bleeding; N18.31 Chronic kidney disease, stage 3a; D50.9 Iron deficiency anemia, unspecified; E87.6 Hypokalemia; F32.9 Major depressive disorder, single episode, unspecified; G89.4 Chronic pain syndrome; I25.2 Old myocardial infarction; Z79.1 Long term (current) use of non-steroidal anti-inflammatories (NSAID)
CPT/HCPCS: 36415; 36556; 36600; 51702; 70450; 71045; 80048; 80053; 80202; 81001; 82306; 82565; 82805; 82962; 83540; 83550; 83605; 83735; 83880; 84100; 84132; 84443; 84484; 85007; 85025; 85027; 85379; 85610; 85730; 86850; 86870; 86900; 86901; 86902; 86922; 87040; 87070; 87081; 87086; 87205; 87426; 87493; 92950; 93005; 93306; 93970; 94002; 94003; 94640; 95819; 96365; 96367; 96368; 96375; 99291; C9113; G0378; J0153; J0696; J2250; J2543; J2704; J3480; J3490